=== PATIENT | female | born 1950 | race Caucasian/White ===

== ENCOUNTER 2017-06-08 10:01 | Outpatient (CLI) | payer OTHER ==
[~2017-06-08 10:01] MED LIST: DICLOFENAC SODI50 MG PO; LIPITOR40 MG; PREMPRO 0.3 MG/1 TAB
== END 2017-06-08 10:09 | disposition home or self-care (01) ==
LOC: TOM 10:01
DX: M54.5 Low back pain (principal)

== ENCOUNTER 2021-06-02 08:21 | Outpatient (CLI) | payer OTHER | END 2021-06-02 08:32 | disposition home or self-care (01) | LOC: SONOGRAMA 08:21 | PROVIDERS: ATTEND Family Medicine | DX: M65.88 Other synovitis and tenosynovitis, other site (principal) ==

== ENCOUNTER 2021-12-31 09:32 | Outpatient (CLI) | payer OTHER | END 2021-12-31 09:44 | disposition home or self-care (01) | LOC: SONOGRAMA 09:32 | PROVIDERS: ATTEND Orthopaedic Surgery Hand Surgery | DX: R22.32 Localized swelling, mass and lump, left upper limb (principal); R22.31 Localized swelling, mass and lump, right upper limb ==